=== PATIENT | male | born 1930 | race Hispanic/Latino ===

== ENCOUNTER 2020-01-18 05:24 | Day surgery (SDC) | payer OTHER ==
[2020-01-15 12:46] LABS: BASOPHILS % (AUTO) 0.7 % (0.0-5.0); EOSINOPHILS % (AUTO) 2.4 % (0.0-8.0); HEMATOCRIT 42.1 % (42-54); LYMPHOCYTES % (AUTO) 13.9 % (21.0-51.0); MONOCYTES % (AUTO) 5.8 % (3.0-13.0); NEUTROPHILS % (AUTO) 76.8 % (40.0-77.0); PLATELET COUNT (AUTO) 190 K/uL (130-400); RED BLOOD CELL COUNT(AUTO) 4.48 MIL/uL (4.50-6.20); RED CELL DISTRIBUTION WIDTH 12.6 % (11.0-15.5); WHITE BLOOD COUNT (AUTO) 7.6 K/uL (4.8-10.8)
[2020-01-15 12:52] LABS: APPEARANCE,URINE TURBID (CLEAR); BILIRUBIN,URINE NEGATIVE (NEGATIVE); COLOR,URINE YELLOW (YELLOW); GLUCOSE, URINE (UA) NEGATIVE (NEGATIVE); KETONES,URINE NEGATIVE (NEGATIVE); LEUKOCYTE ESTERASE ,URINE LARGE (NEGATIVE); NITRATE,URINE POSITIVE (NEGATIVE); OCCULT BLOOD,URINE TRACE-INTACT (NEGATIVE); PROTEIN,URINE 30 mg/dL (NEGATIVE); UROBILINOGEN,URINE 0.2 mg/dL (0.2-1.0)
[2020-01-15 13:08] LABS: BACTERIA,URINE Moderate /HPF (None Seen); SQUAMOUS EPITHELIAL CELL,UR Few /HPF (0-2); TRIPLE PHOSPHATE CRYSTAL,UR Moderate /LPF (None Seen); WBC,URINE TNTC /HPF (0-1)
[2020-01-15 13:11] LABS: INR 0.89 (0.85-1.15); POTASSIUM 5.4 mmol/L (3.5-5.1); PROTHROMBIN TIME 9.7 SEC (9.6-11.6)
--- NOTE | 2020-01-17 12:23 | NUR ---
FAXED AT 1223 ABNORMAL LABS FROM 01/15/[address] GRANT'S OFFICE URINE CULTURE, UA, BMP
[2020-01-17 13:24] VITALS: BP 175/71
--- NOTE | 2020-01-17 16:19 | NUR ---
NO NEW ORDERS RELATED TO FAXED LABS PER DR GRANT/DIANNE
[2020-01-18] VITALS (14 sets, daily range): BP systolic 131–219; BP diastolic 62–116
[~2020-01-18] VITALS: Ht 163.8 cm; Wt 65.7 kg
[~2020-01-18 05:24] MED LIST: ATOR40TA71 PO; BICA50TA7 PO; FOLI0.8T22 PO; LEVO500T89 PO
[2020-01-18] MEDS ORDERED: CEFTRIAXONE SODIUM 1 GM ONE (06:06)
[2020-01-18] MEDS ORDERED: LACTATED RINGERS 1000ML 1,000 ML IV ONE (06:07)
[2020-01-18] MEDS ORDERED: GENTAMICIN 120 MG IN 100ML NS 100 ML IV SCH (06:45)
[2020-01-18] MEDS ORDERED: PROPOFOL 10 MG/ML 20ML VIAL IV ONE (07:37)
[2020-01-18] MEDS ORDERED: LIDOCAINE PF 2% 5ML ABBOJECT ONE (07:38)
[2020-01-18] MEDS ORDERED: ROCURONIUM 10MG/1ML SYR 10 MG/ML ML ONE (07:38)
[2020-01-18] MEDS ORDERED: KETAMINE 50MG/ML SYRINGE 50 MG/ML DISP.SYRIN IV ONE (07:45)
[2020-01-18] MEDS ORDERED: FENTANYL CITRATE PF 50 MCG/1 ML 2ML VIAL ONE (09:05)
[2020-01-18] MEDS ORDERED: GLYCOPYRROLATE 1 MG/5 ML SYRINGE ONE (09:48)
[2020-01-18] MEDS ORDERED: NEOSTIGMINE 5MG/5ML SYR IV ONE (09:48)
[2020-01-18] MEDS ORDERED: LABETALOL 20 MG/4 ML DISP.SYRIN IV ONE (10:06)
[2020-01-18] MEDS ORDERED: HYDRALAZINE HCL 20 MG/ML VIAL ONE (10:27)
== END 2020-01-18 11:50 | disposition home or self-care (01) ==
LOC: DAH 05:24 → EDSEX 10:00 → DAH 11:50
PROVIDERS: ATTEND Urology
DX: N40.1 Benign prostatic hyperplasia with lower urinary tract symptoms (principal); C79.82 Secondary malignant neoplasm of genital organs; R33.9 Retention of urine, unspecified; G47.30 Sleep apnea, unspecified; I10 Essential (primary) hypertension; E78.5 Hyperlipidemia, unspecified; Z79.01 Long term (current) use of anticoagulants
CPT/HCPCS: 36415; 52648; 71045; 80048; 81001; 85025; 85610; 85730; 87077 ×3; 87088; 87186 ×3; 93005; A4354; A6260; J0360; J0696; J1580; J2001; J2704; J2710; J3010; J3490 ×2; J7030; J7120